=== PATIENT | female | born 1945 | race Caucasian/White ===

== ENCOUNTER → 2019-08-01 16:35 | Outpatient (CLI) | payer SELFPAY ==
[2019-08-01 17:21] LABS: Specimen Label KIT DNA WBLOOD
== END ==
DX: Z13.9 Encounter for screening, unspecified (principal)
CPT/HCPCS: 36415

== ENCOUNTER → 2019-11-01 13:34 | Outpatient (CLI) | payer BC, OTHER, SELFPAY | DX: E03.9 Hypothyroidism, unspecified (principal); I10 Essential (primary) hypertension | CPT/HCPCS: 36415; 99001 ==

== ENCOUNTER 2023-07-16 15:26 | Emergency (ER) | payer OTHER, BC, SELFPAY ==
[2023-07-16 15:03] VITALS: BP 186/74; PULSE 81; RESP 14; TEMP 36.8; O2SAT 96; BMI 19.1
--- NOTE | 2023-07-16 15:28 | DI.CT.S_ITS ---
PROCEDURE: CT HEAD/BRAIN WO CON INDICATIONS: head injury TECHNIQUE: Noncontrast 4.5 mm thick angled axial sections acquired from the foramen magnum to the vertex, with coronal and sagittal reformats. For radiation dose reduction, the following was used: automated exposure control, adjustment of mA and/or kV according to patient size. COMPARISON: None. FINDINGS: Image quality: Excellent. CSF spaces: Basal cisterns are patent. No extra-axial fluid collections. The ventricles are symmetric in size and shape. Brain: No acute intracranial hemorrhage or mass effect. There is cerebral volume loss for age, with resultant ventricular and sulcal prominence. There are periventricular and deep white matter chronic small vessel ischemic changes. There is intracranial internal carotid artery atherosclerosis. Skull and face: Calvarium and visualized facial bones appear intact, without suspicious lesions. Sinuses: Visualized sinuses and mastoids are clear. IMPRESSION: No acute intracranial abnormality. Approved by: Seymour Jc M.D. on 07/16/2023 at 16:27
--- NOTE | 2023-07-16 15:30 | DI.CT.S_ITS ---
PROCEDURE: CT CERVICAL SPINE WO CON INDICATIONS: head/neck injury, RUE numbness tingling, no weakness TECHNIQUE: Noncontrast 3 mm thick sections acquired from the skull base to the T4 level. Sagittal and coronal reformats were then constructed. For radiation dose reduction, the following was used: automated exposure control, adjustment of mA and/or kV according to patient size. COMPARISON: None. FINDINGS: Image quality: Excellent. Bones: No acute fractures or dislocations. Visualized superior ribs are intact. Multilevel degenerative disc disease, facet hypertrophy, and uncovertebral joint hypertrophy, overall worst at the C3-4 and C5-6 levels where there is moderate narrowing of the spinal canal. Soft tissues: Prevertebral soft tissues are normal in thickness. No paravertebral hematomas. No apical pneumothoraces. IMPRESSION: No acute cervical spine fracture or subluxation. Multilevel spondylosis. Approved by: Seymour Jc M.D. on 07/16/2023 at 16:34
--- NOTE | 2023-07-16 16:11 | PC.NURSE ---
Patient states she has a history of pseudomonas and takes Carlos nebulized 3x daily for 28 days, and then off of it for 28days. Then repeats. She requests we wait to give her an IV until CT results come back. Provider aware.
[2023-07-16 16:23] VITALS: PULSE 85; O2SAT 99
[2023-07-16 16:30] VITALS: BP 174/74; PULSE 81; O2SAT 99
--- NOTE | 2023-07-16 16:34 | ED_ITS ---
HPI - Fall General Chief Complaint: Fall Stated Complaint: Fell on boat, hit head Time Seen by Provider: 07/16/23 15:27 Source: patient and EMS Mode of arrival: EMS History of Present Illness HPI Narrative: 77-year-old female nonsmoker with history of hypertension presents by EMS for evaluation head injury with some mild neck pain just prior to arrival. She states that she was stepping off a boat and stumbled back into a large piling a nd struck the left side of her head which caused whiplash-type injury. She complains of some neck and right arm tingling. She does state that she fell forward onto her outstretched right arm but denies any wrist, elbow pain she does have full recall of the event and denies any loss of consciousness, nausea or vomiting. She does not take blood thinners. She does have a history of chronic neck pain. She is got some discomfort in the musculature at the base of her neck and both shoulders. She denies any weakness of her upper or lower extremities Related Data Home Medications Medication Instructions Recorded Confirmed hydrochlorothiazide 25 mg tablet 25 mg PO DAILY 12/08/19 12/08/19 thyroid 60 mg tablet mg PO 12/08/19 12/08/19 Previous Rx's Medication Instructions Recorded cyclobenzaprine 10 mg tablet 10 mg PO TID PRN muscle spasm #14 07/16/23 tabs methylprednisolone 4 mg tablets in See Rx Instructions PO .COMPLEX 07/16/23 a dose pack (Medrol (Jose)) #21 ea Allergies Allergy/AdvReac Type Severity Reaction Status Date / Time No Known Drug Allergies Allergy Verified 07/16/23 15:30 Review of Systems Review of Systems Narrative: GENERAL: Denies chills, fatigue, malaise, fever, sweats. HEENT: Denies sinus pain, ear pain, sore throat, difficulty swallowing, dizziness. RESPIRATORY: Denies dyspnea, cough, wheezing, hemoptysis, sputum. CARDIOVASCULAR: Denies chest pain, palpitations, orthopnea, edema, GASTROINTESTINAL: Denies nausea, vomiting, abdominal pain, diarrhea, constipation, melena. : Denies dysuria, frequency, incontinence, hematuria, urinary retention. MUSCULOSKELETAL: See HPI SKIN: Denies rash, skin lesions, or other NEUROLOGIC: See HPI PSYCHIATRIC: No concerning psychosocial issues. 12 point review of systems is negative except for those stated above Patient History Medical History Cervical stenosis of spine Chicken pox Chronic cough (~2007) Chronic neck and back pain Fractures (~2003) GERD (gastroesophageal reflux disease) HTN (hypertension) (~2018) Hypothyroidism (acquired) Respiratory disease Scoliosis Surgical History Anesthesia History of tonsillectomy Family History Father Cancer History of heart disease Hypertension Mother Osteoporosis Brother Hypertension Stroke Sister Hypertension Grandfather Stroke Grandmother Broken hip Social History Smoking Status: Never smoker Smoking Status: Never smoker alcohol intake frequency: holidays/special occasions only Substance Use Type: does not use Exam Narrative Exam Narrative: GENERAL: [77] year old patient appears stated age. Well-developed patient, in mild distress. GCS 15 HEAD: Superficial abrasions to left side of face, no hematomas or contusions, no evidence of depressed skull fracture EYES: Pupils equal round and reactive. No hyphema Extraocular motions intact. No scleral icterus. No injection or drainage. ENT: Nose without bleeding, purulent drainage. No nasal septal hematoma or hemotympanum Throat without erythema, tonsillar hypertrophy or exudate. Airway patent. NECK: Trachea midline. Minimal midline tenderness, reproducible pain in the paraspinal musculature bilaterally, no step-offs or crepitance CARDIOVASCULAR: Regular rate and rhythm without murmurs, gallops, or rubs. RESPIRATORY: Clear to auscultation. Breath sounds equal bilaterally. No wheezes, rales, or rhonchi. GASTROINTESTINAL: Abdomen soft, non-tender, nondistended. 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 She does report subjective tingling to portions of right upper extremity. No reproducible pain in shoulder, elbow or wrist. BACK: Nontender without deformity or crepitance. No flank tenderness. NEURO: AOx3. SKIN: No rash or erythema of visible areas Initial Vital Signs Initial Vital Signs: Vital Signs Temperature 98.2 F 07/16/23 15:03 Pulse Rate 81 07/16/23 15:03 Respiratory Rate 14 07/16/23 15:03 Blood Pressure 186/74 H 07/16/23 15:03 Pulse Oximetry 96 07/16/23 15:03 Oxygen Delivery Method Room Air 07/16/23 15:03 Course Orders Ordered: ED Orders 07/16/23 15:28 CT head/brain wo con Stat 07/16/23 15:30 CT cervical spine wo con Stat Reevaluation(s) Reevaluation #1: Patient has full painless range of motion when C-collar is removed, no measurable weakness, tingling is minimal and continues to improve Consultations Consultation #1: discussed with ortho spine Dr. Nunez. He is reviewed the patient's history and physical exam as well as imaging and states no further imaging is needed at this time, symptoms are most consistent with chronic cervical change and mild radicular symptoms rather than ligamentous or spinal cord injury such as central cord syndrome. Recommends muscle relaxer with steroids and follow-up with his office Vital Signs Vital signs: Vital Signs - 8 hr 07/16/23 15:03 Temperature 98.2 F Pulse Rate 81 Respiratory Rate 14 Blood Pressure 186/74 H Pulse Oximetry 96 Oxygen Delivery Method Room Air MDM - Fall MDM Narrative Medical decision making narrative: [77] year old patient presents with had and neck injury after ground level fall with tingling of her right upper extremity Multiple etiologies for patient's symptoms considered including, but not limited to: [Intracranial hemorrhage versus cervical fracture versus dislocation versus cervical radiculopathy versus cord syndrome versus other] Prior Charts reviewed in our EMR Primary Historian: patient Imaging reviewed: CT head without acute intracranial abnormality, CT of the C- spine demonstrates no evidence of acute fracture or dislocation, there is multi- level degenerative disc disease, facet hypertrophy and uncovertebral joint hypertrophy with moderate narrowing of the spinal canal at C3 and 4 as well as C5-6 Consultations: Discussed with on-call ortho spine Dr. Nunez (see details above) Patient's symptoms improved over duration of stay with above-stated therapies. Multiple diagnoses considered as noted above. No evidence of intracranial hemorrhage, no evidence of fracture or dislocation. Patient has very minimal tingling of her right upper extremity that improves over the course of the visit and is only very minimally present at the end, no lower extremity complaints, no measurable weakness. Very low suspicion for cord syndrome or ligamentous injury, patient's C-collar removed and she has full painless range of motion. Return precautions discussed and importance of follow-up with Dr. Nunez relayed and understood by patient as evidenced by her ability to recite back instructions Findings and discharge diagnosis discussed with patient/family followed by verbalization of understanding Return precautions discussed with patient/family whom verbalize understanding of diagnosis and plan Discharge Plan Departure Patient Disposition: Home Clinical Impression: Cervical radiculopathy Instructions: DI for Cervical Radiculopathy Activity Restrictions/Additional Instructions: *You have been diagnosed with [acute cervical radiculopathy] *What to do: *Please continue to take your regular medications as directed. [ x] New medication prescriptions sent to your pharmacy: [[facility] in [place] ] [ ] New medication written as a paper prescription [ ] No new medications given * as we discussed please follow-up with Dr. Nunez at [facility]. Call the office on Wednesday, let them know that you were seen in the emergency department and we would like you seen in follow-up. I will electronically transmitted a copy of today's note on your behalf *Return to Emergency Department if you should have any new, worsening or concerning symptoms, such as [fever greater than 101 F, shaking chills, worsening pain, persistent vomiting or other bothersome symptoms] Prescriptions: New cyclobenzaprine 10 mg tablet 10 mg PO TID PRN (Reason: muscle spasm) Qty: 14 0RF methylprednisolone [Medrol (Jose)] 4 mg tablets,dose pack See Rx Instructions .ROUTE .COMPLEX Qty: 21 0RF Rx Instructions: orally per package directions No Action thyroid 60 mg tablet PO hydrochlorothiazide 25 mg tablet 25 mg PO DAILY Referrals: Mecca Nunez MD [Physician] - Stand Alone Forms: Patient Portal/API
[2023-07-16 17:00] VITALS: BP 177/77; PULSE 87; O2SAT 100
[2023-07-16 17:30] VITALS: BP 177/76; PULSE 90; O2SAT 99
== END 2023-07-16 18:06 | disposition home or self-care (01) ==
PROVIDERS: Emergency Provider Emergency Medicine
DX: M54.12 Radiculopathy, cervical region (principal); M54.50 Low back pain, unspecified
CPT/HCPCS: 70450; 72125; 99283; 99284